=== PATIENT | male | born 1940 | race Caucasian/White ===

== ENCOUNTER 2017-01-20 13:44 | Emergency (ER) | payer MEDICARE ==
[~2017-01-20] VITALS: Ht 170.2 cm; Wt 49.9 kg
--- NOTE | 2017-01-20 13:45 | NUR ---
[facility] PATIENT AMB TO ER 3 ACCOMPANIED BY SON. C/O SORE THROAT, FEVER, BODY ACHES. STAETD HAVING PRODUCTIVE COUGH OF GREEN SPUTUM. HX TAKEN FROM PATIENT. NO DISTRESS NOTED. PATIENT HAS SEVERE PUS POCKETS IN BACK OF THROAT.
--- NOTE | 2017-01-20 14:05 | NUR ---
DR. MARCIAL AT BEDSIDE
[2017-01-20] MEDS ORDERED: BICILLIN L-A IM STA (14:21)
[2017-01-20] MEDS ORDERED: DECADRON IM STA (14:21)
[2017-01-20] MEDS ORDERED: BICILLIN L-A IM ONE (14:26)
[2017-01-20] MEDS ORDERED: DECADRON ONE (14:26)
--- NOTE | 2017-01-20 14:29 | ER.PDOC ---
General Chief Complaint: Cough/Congestion Stated Complaint: DIZZY, TROUBLE BREATHING, SWOLLEN THROAT Time seen by MD: 14:24 Source: patient Exam Limitations: no limitations History of Present Illness Initial Comments Sore throat for 2 days, no fever/chills. Timing/Duration: abrupt Associated Symptoms: mod sore throat Severity: moderate Allergies: Coded Allergies: No Known Allergies (Unverified , 01/20/17) Past Medical History Medical History: COPD, heart attack Surgical History: cardiac cath, stent, other Social History Smoking: quit greater than 1 year Alcohol Use: none Constitutional: no symptoms reported Throat: see HPI Respiratory: cough Cardiovascular: no symptoms reported Gastrointestinal: no symptoms reported Musculoskeletal: no symptoms reported All Other Systems: Reviewed and Negative Physical Exam General Appearance: alert, no distress Head/Neck: head nml inspection, neck nml inspection, trachea midline, no lymphadenopathy, thyroid nml Mouth: lips, gums nml, no drooling, no thrush, membranes nml Throat: pharyngeal erythema, tonsillar exudate Ears/Nose: nml inspection Respiratory: no resp. distress, lungs clear CVS: reg. rate & rhythm, heart sounds nml Abdomen: non-tender, no organomegaly Extremities: non-tender, ROM nml Skin Exam: Normal Color, Warm/Dry NEURO/PSYCH: oriented X3, mood/effect nml Departure Time of Disposition: 14:25 Disposition: 01 HOME, SELF-CARE Impression: Primary Impression: Acute tonsillitis Qualified Codes: J03.90 - Acute tonsillitis, unspecified Additional Impression: Acute respiratory infection Condition: Stable Additional Instructions: Prednisone Mucinex DM OTC as directed Chloraseptic spray OTC as needed for throat pain. F/U with your PCP in 2-3 days JANIE MARCIAL MD January 20, 2017 14:29
--- NOTE | 2017-01-20 14:36 | NUR ---
BICILLIN AND DECADRON IM GIVEN ORDERED. SEE EMAR.
[2017-01-20 14:41] VITALS: BP 146/82
== END 2017-01-20 14:40 | disposition home or self-care (01) ==
LOC: ER 13:44
DX: J03.90 Acute tonsillitis, unspecified (principal); J44.9 Chronic obstructive pulmonary disease, unspecified; I25.2 Old myocardial infarction; Z87.891 Personal history of nicotine dependence
CPT/HCPCS: 93005; 96372 ×2; 99284; J0561; J1100